=== PATIENT | female | born 1970 | race African-American/Black ===

== ENCOUNTER 2017-04-28 11:56 | Inpatient (IN) | payer OTHER ==
[~2017-04-28] VITALS: Ht 160 cm; Wt 200.0 kg
[2017-04-28] VITALS (247 sets, daily range): BP systolic 148–186; BP diastolic 90–108; PULSE 66–68; TEMP 97.4–97.9; O2SAT 90–99
[2017-04-28] MEDS ORDERED: CARTIA XT120 MG PO (12:05)
[2017-04-28 13:15] LABS: BASO % 0.8 % (0.0-2.0); EOS # 0.2 (0.0-0.7); EOS % 3.3 % (0-4.0); GRAN # 2.7 (1.4-6.5); GRAN % 52.3 % (42.2-75.2); HEMATOCRIT 39.5 % (37.0-47.0); HEMOGLOBIN 12.7 g/dl (12.5-16.0); LYMPH # 1.8 (1.2-3.4); LYMPH % 34.9 % (20.0-51.0); MEAN CELL VOLUME 90 fl (80.0-100.0); MEAN CORPUSCULAR HEMOGLOBIN 29 pg (27.0-31.0); MEAN CORPUSCULAR HGB CONC 32 g/dl (33.0-37.0); MEAN PLATELET VOLUME 13.5 fl (7.4-10.4); MONO # 0.4 (0.1-0.6); MONO % 8.5 % (1.7-9.3); PLATELET COUNT 141 K/mm3 (130-400); RED BLOOD COUNT 4.41 M/mm3 (4.10-5.30); REDCELL DISTRIBUTION WIDTH-CV 13.7 % (11.5-14.5)
[2017-04-28 13:26] LABS: ALANINE AMINOTRANSFERASE 49 U/L (9-52); ALBUMIN 3.6 gm/dL (3.5-5.0); ALKALINE PHOSPHATASE 77 U/L (50-136); ANION GAP 8 mmol/L (7-16); AST,SGOT 33 U/L (15-37); BILIRUBIN,TOTAL 0.4 mg/dL (0.0-1.0); BLOOD UREA NITROGEN 13 mg/dL (7-17); CALCIUM 8.5 mg/dL (8.4-10.2); CARBON DIOXIDE 31 mmol/L (22-30); CHLORIDE 103 mmol/L (98-107); CREATININE, serum 0.85 mg/dL (0.52-1.25); GLUCOSE 107 mg/dL (74-106); LIPASE 69 U/L (23-300); POTASSIUM 3.1 mmol/L (3.4-5.0); SODIUM 141 mmol/L (137-145); TOTAL PROTEIN 7.1 gm/dL (6.4-8.2)
[2017-04-28 13:39] LABS: TROPONIN-I < 0.012 ng/mL (0.000-0.034)
[2017-04-28 20:32] LABS: MUCOUS Present /lpf; PH 8 (5-8); SQUAMOUS EPITHELIAL 0-2 /hpf; URINE APPEARANCE Clear; URINE BACTERIA Rare /hpf; URINE BILIRUBIN Negative (NEGATIVE); URINE BLOOD Negative (NEGATIVE); URINE COLOR Straw; URINE GLUCOSE Negative (NEGATIVE); URINE KETONE Negative (NEGATIVE); URINE LEUKOCYTE ESTERASE Negative (NEGATIVE); URINE NITRATE Negative (NEGATIVE); URINE PROTEIN(semi-quant) Negative (NEGATIVE); URINE RBC 0-2 /hpf; URINE UROBILINOGEN Negative (NEGATIVE)
[2017-04-28 20:52] LABS: URINE PROTEIN:CREAT RATIO 0.63 (0.00-0.14)
[2017-04-28 21:10] LABS: COLLECTION METHOD CLEAN CATCH
[2017-04-29] VITALS (477 sets, daily range): BP systolic 140–192; BP diastolic 75–110; PULSE 59–63; TEMP 97.4–98.3; O2SAT 87–100
[2017-04-29 07:27] LABS: BASO % 0.6 % (0.0-2.0); EOS # 0.2 (0.0-0.7); EOS % 3.3 % (0-4.0); GRAN # 2.9 (1.4-6.5); GRAN % 53.9 % (42.2-75.2); HEMATOCRIT 41.5 % (37.0-47.0); LYMPH # 1.8 (1.2-3.4); LYMPH % 33.1 % (20.0-51.0); MEAN CELL VOLUME 90 fl (80.0-100.0); MEAN CORPUSCULAR HEMOGLOBIN 28 pg (27.0-31.0); MEAN CORPUSCULAR HGB CONC 31 g/dl (33.0-37.0); MEAN PLATELET VOLUME 13.6 fl (7.4-10.4); MONO # 0.5 (0.1-0.6); MONO % 8.7 % (1.7-9.3); PLATELET COUNT 149 K/mm3 (130-400)
[2017-04-29 07:50] LABS: CALCIUM 8.6 mg/dL (8.4-10.2); CHOLESTEROL RISK RATIO 4.2; CREATININE, serum 0.87 mg/dL (0.52-1.25); POTASSIUM 3.4 mmol/L (3.4-5.0)
[2017-04-30 00:11] VITALS: BP 147/76; PULSE 60; TEMP 99
[2017-04-30 03:36] VITALS: BP 174/90; PULSE 60; TEMP 97.8
[2017-04-30 05:20] VITALS: BP 148/83
[2017-04-30 08:12] VITALS: BP 150/94; PULSE 59; TEMP 99.3
[2017-04-30 08:17] LABS: HEMATOCRIT 42.1 % (37.0-47.0); HEMOGLOBIN 13.6 g/dl (12.5-16.0); MEAN CELL VOLUME 89 fl (80.0-100.0); MEAN CORPUSCULAR HEMOGLOBIN 29 pg (27.0-31.0); MEAN CORPUSCULAR HGB CONC 32 g/dl (33.0-37.0); MEAN PLATELET VOLUME 14.1 fl (7.4-10.4); PLATELET COUNT 144 K/mm3 (130-400); RED BLOOD COUNT 4.72 M/mm3 (4.10-5.30); REDCELL DISTRIBUTION WIDTH-CV 13.9 % (11.5-14.5)
[2017-04-30 08:35] LABS: ALBUMIN 3.7 gm/dL (3.5-5.0); BILIRUBIN,TOTAL 0.5 mg/dL (0.0-1.0); CALCIUM 8.8 mg/dL (8.4-10.2); CREATININE, serum 0.97 mg/dL (0.52-1.25); POTASSIUM 3.6 mmol/L (3.4-5.0); TOTAL PROTEIN 7.2 gm/dL (6.4-8.2)
[2017-04-30 11:31] VITALS: BP 150/82; PULSE 59; TEMP 98.6
[2017-04-30 16:30] VITALS: BP 154/87; PULSE 68; TEMP 98.5
[2017-04-30] MEDS ORDERED: PRINIVIL20 MG PO (17:12)
== END 2017-04-30 17:58 | disposition home or self-care (01) | DRG 305 ==
LOC: COL.ER 11:56 → ICU 14:49 → MEDICAL 04-29 17:34
PROVIDERS: Emergency Medicine; Internal Medicine; Physician Assistant
DX: I16.0 Hypertensive urgency (principal); Z68.42 Body mass index [BMI] 45.0-49.9, adult; E87.3 Alkalosis; Z87.891 Personal history of nicotine dependence; E87.6 Hypokalemia; M54.6 Pain in thoracic spine; G89.21 Chronic pain due to trauma; E66.9 Obesity, unspecified; R73.9 Hyperglycemia, unspecified
CPT/HCPCS: 99222-AI; 99232-AI; 99239; J1650; J1940; J2270; J2405; J7050; Q9967

== ENCOUNTER 2018-12-17 13:52 | Outpatient (RCR) | payer OTHER ==
[~2018-12-17 13:52] MED LIST: CARTIA XT120 MG PO; PRINIVIL20 MG PO
== END 2019-01-02 11:10 | disposition home or self-care (01) ==
LOC: WSOH 13:52
DX: S46.811A Strain of other muscles, fascia and tendons at shoulder and upper arm level, right arm, initial encounter (principal); X50.0XXA Overexertion from strenuous movement or load, initial encounter; Y93.89 Activity, other specified; Y92.63 Factory as the place of occurrence of the external cause; Y99.0 Civilian activity done for income or pay; I10 Essential (primary) hypertension; Z79.899 Other long term (current) drug therapy